=== PATIENT | male | born 1945 | race Caucasian/White ===

== ENCOUNTER 2017-05-26 11:25 | Inpatient (IN) | payer OTHER ==
[2017-04-24 11:25] VITALS: BMI 43.0
--- NOTE | 2017-04-24 11:57 | PAT Medication Instructions ---
Service Date Apr 24, 2017. Current Home Medication List Ascorbic Acid (Vitamin C), 1,000 MG PO QAM Biotin (Biotin), 1 TAB PO QAM Celecoxib (Celebrex), 1 CAP PO QAM Cholecalciferol (Vitamin D3), 1 TAB PO QAM Cod Liver Oil (Cod Liver Oil 1000 mg), 1 CAP PO QAM Coenzyme Q10 (Ubidecarenone) (Coq10), 200 MG PO QAM Fish Oil ([place]-3), 1 CAP PO QAM Fluticasone Propionate (Nasal) (Flonase Allergy Relief), 1 SPRAY PHILOMENA QAM Hydrochlorothiazide (Hctz), 25 MG PO QAM Levothyroxine Sodium (Synthroid), 125 MCG PO QAM Multivitamin (Multivitamin), 1 TAB PO QAM Ranitidine (Zantac), 150 MG PO BID Sennosides-Docusate Sodium (Stool Softener), 1 TAB PO BID Medication Instructions For Your Scheduled Surgery - Hold the following medications 2 weeks prior to surgery: Biotin (Biotin), 1 TAB PO QAM Cod Liver Oil (Cod Liver Oil 1000 mg), 1 CAP PO QAM Coenzyme Q10 (Ubidecarenone) (Coq10), 200 MG PO QAM Fish Oil ([place]-3), 1 CAP PO QAM - Hold the following medications the morning of surgery: Sennosides-Docusate Sodium (Stool Softener), 1 TAB PO BID Cholecalciferol (Vitamin D3), 1 TAB PO QAM Hydrochlorothiazide (Hctz), 25 MG PO QAM Multivitamin (Multivitamin), 1 TAB PO QAM Ascorbic Acid (Vitamin C), 1,000 MG PO QAM Celecoxib (Celebrex), 1 CAP PO QAM (otherwise okay to continue per surgeon) - Take the following medications the morning of surgery with a sip of water OTHERWISE NOTHING TO EAT OR DRINK AFTER MIDNIGHT: Ranitidine (Zantac), 150 MG PO BID Levothyroxine Sodium (Synthroid), 125 MCG PO QAM Fluticasone Propionate (Nasal) (Flonase Allergy Relief), 1 SPRAY PHILOMENA QAM - Take the following medications as scheduled the night before surgery: Sennosides-Docusate Sodium (Stool Softener), 1 TAB PO BID Ranitidine (Zantac), 150 MG PO BID If you have any questions please call us at [phone] or [phone] or [phone]
[2017-04-24 12:39] LABS: BASO % 1.1 %; BASO ABS # 0.07 K/uL (0-0.2); COMPLETE YES; HEMATOCRIT 43.2 % (42-52); IG% 0.3 %; LYMPH % 24.1 %; LYMPH ABS # 1.47 K/uL (1.2-3.4); MEAN CELL VOLUME 91.9 fL (80-100); MEAN CORPUSCULAR HEMOGLOBIN 33.6 pg (25-34); MEAN CORPUSCULAR HGB CONC 36.6 g/dl (32-36); MEAN PLATELET VOLUME 9.6 fL (7.4-10.4); MONO % 14.3 %; NEUT % 49.2 %; PLATELET COUNT 280 K/uL (130-400)
[2017-04-24 12:47] LABS: URINE APPEARANCE CLEAR (CLEAR); URINE BILIRUBIN NEG (NEG); URINE COLOR YELLOW; URINE EPITHELIAL CELL AUTO 0-5 /lpf (0-5); URINE NITRITE NEG (NEG); URINE SPECIFIC GRAVITY 1.024 (1.000-1.030); UROBILINOGEN NEG (NEG); ZZUR CULT IF INDIC CLEAN CATCH NO
[2017-04-24 12:48] LABS: ESTIMATED AVERAGE GLUCOSE 120 mg/dl; HA1C FLAG Normal (Normal); MANUAL MICROSCOPIC REQUIRED? NO; REVIEW REQ? NO
--- NOTE | 2017-04-24 12:48 | DIAGNOSTIC IMAGING REPORT ---
CHEST PREADMISSION(PA/LAT) CLINICAL HISTORY: Preoperative evaluation. COMPARISON STUDY: Chest radiograph May 21, 2015. FINDINGS: Mild lung hyperexpansion is noted. No pneumothorax or pleural effusion is present. Pulmonary vascularity is normal. Cardiomediastinal silhouette is normal. No consolidation is identified. IMPRESSION: 1. No acute cardiopulmonary findings. 2. Mild lung hyperexpansion. Electronically signed by: Landon Jones M.D. 04/24/2017 12:47 PM Dictated Date/Time: 04/24/2017 12:46 PM
[2017-04-24 12:50] LABS: PROTHROMBIN TIME (PATIENT) 10.7 SECONDS (9.0-12.0)
[2017-04-24 13:40] LABS: BUN/CREATININE RATIO 15.1 (10-20); CALCIUM 9.5 mg/dl (8.5-10.1); CREATININE 1.3 mg/dl (0.60-1.40); POTASSIUM 3.9 mmol/L (3.5-5.1)
--- NOTE | 2017-04-30 13:56 | HISTORY & PHYSICAL EXAMINATION ---
DATE OF ADMISSION: 05/26/2017 PROCEDURE: Left knee revision of patellar component, possible revision of tibial stem, possible stems and wedges and revision total knee replacement. HISTORY OF PRESENT ILLNESS: Naga is a pleasant 72-year-old male who has a history of surgery to his left knee over the past several years. He first underwent a left knee arthroscopy in November 2013. Approximately a year later underwent a left total knee replacement, approximately a month after the surgery, he sustained a twisting injury and tore his medial retinaculum. Therefore, in July 2014, he underwent repair of medial retinaculum. Then in June 2015, he re-tore his medial retinaculum, at that point underwent a repair of medial retinaculum with lateral release and poly exchange. The patient was seen in February for increased pain in his knee, x-rays at that time revealed a lateral subluxation of his patella. At that point, the patient did have a second opinion with Dr. Caldwell as well as per Dr. Blackwell, discussed revision patellar component with revision of tibia. He did have a bone scan performed which did not show any signs of infection or loosening. He underwent some blood work. His CRP was less than 0.29 and his sed rate was 9. Further care discussed including risks and benefits of the procedure, and the patient would like to proceed. PAST MEDICAL HISTORY: History of Lyme disease, sleep apnea, hypothyroidism, COPD, GERD, back pain, hyperlipidemia, and history of atrial flutter. PAST SURGICAL HISTORY: As outlined above. In addition to above, he has also had a tonsillectomy. In November 2015, he underwent lower back surgery with Dr. Murillo. ALLERGIES: TRIPLE ANTIBIOTIC OINTMENT. MEDICATIONS: 1. Hydrochlorothiazide. 2. Meloxicam. 3. Coenzyme Q10. 4. Biotin. 5. Cimetidine. 6. Aspirin. 7. Omeprazole. 8. Simvastatin. 9. Fish oil. 10. Spiriva. FAMILY HISTORY: Noncontributory. SOCIAL HISTORY: The patient is . Rarely consumes any alcohol. Former smoker. He is retired. REVIEW OF SYSTEMS: Otherwise negative. Please see HPI for pertinent positives. PHYSICAL EXAMINATION: GENERAL: Pleasant 72-year-old male in no acute distress, alert and oriented x3. HEENT: Normocephalic, atraumatic. CARDIAC: Regular rate and rhythm. No murmurs or gallops were appreciated. Resting pulse 76 beats per minute. LUNGS: Clear to auscultation without rales or wheeze bilaterally. ABDOMEN: Soft, nontender, obese. Bowel sounds present. EXTREMITIES: Attention to his left lower extremity is neurovascularly intact. Calves are soft and nontender. DP pulse +2. Quad demonstrates straight leg raise without lag. There is no erythema or warmth. Has mild swelling. Range of motion is 0/0/105. His knee is stable with valgus and varus stress. He does have lateral subluxation of the patella through range of motion. Tender to palpation over the anterior knee as well as medial aspect. IMAGING: Review of the left knee show findings consistent with history of total knee replacement, does not appear to be any loosening or poly wear. He does have lateral subluxation of his patella on the sunrise view. IMPRESSION: 1. Painful left total knee. 2. Past medical history as outlined above. PLAN: Further care discussed with the patient. At this point in time, would like to proceed with left knee revision of patellar component with possible revision of tibial component full rotation, possible stems and wedges. After discussing all the risks and benefits of the procedure, he would like to proceed. We will plan on aspirin 81 mg twice a day for a month postop, plan on discharge home with outpatient physical therapy.
[~2017-05-26] VITALS: Ht 180.3 cm; Wt 143.0 kg
[2017-05-26] VITALS (7 sets, daily range): BP systolic 108–147; BP diastolic 69–82; PULSE 67–98; TEMP 36.3–36.6; O2SAT 91–98; Ht 180.3 cm; Wt 143.0 kg
--- NOTE | 2017-05-26 09:53 | History & Physical Bridge Note ---
H&P Re-Evaluation Bridge Note: I have examined the patient, reviewed the History & Physical and in the interval since the performance of the History & Physical I have noted the following changes of clinical significance: No changes noted
[~2017-05-26 11:25] MED LIST: ACETAMINOPHEN 500 MG TAB PO SCH; ASCO10003 PO; BIOT1CAP3 PO; BUPIVACAINE 0.25% 30 ML VIAL ONE; BUPIVACAINE 0.5 % 5 MG/1 ML PF 10ML VIAL ONE; CEFAZOLIN 3000 MG/65 ML D5W 65 ML IV SCH; CHOL1000 PO; CLB100 PO; COD1000C PO; COEN1CAP7 PO; CeleBREX 200 MG CAP PO SCH; DEXAMETHASONE 4 MG TAB PO SCH; FAMOTIDINE 20 MG TAB PO SCH; FLUT0.15 NAE; GABAPENTIN 300 MG CAP PO SCH; HYDR25TA4 PO; LACTATED RINGER'S 1000ML 1,000 ML IV SCH; LACTATED RINGER'S 1000ML 500 ML IV ONE; LACTATED RINGER'S 1000ML IV SCH; MULT-506 PO; OMEG10007 PO; ROPIVACAINE 5MG/ML 30 ML 150 MG, BUPIVACAINE/EPINEPHR 0.5% MPF 30 ML, KETOROLAC TROMETH... INFIL SCH; SENNTAB23 PO; SYN125 PO; ZNTT/150 PO
[2017-05-26] MEDS ORDERED: MEPERIDINE HCL 25 MG/ML CARP IV PRN (11:45)
[2017-05-26] MEDS ORDERED: LABETALOL HCL IV 5 MG/ML 20ML IV PRN (11:45)
[2017-05-26] MEDS ORDERED: ONDANSETRON INJ 2 MG/ML 2 ML VIAL IV PRN ×3 (11:45→17:45)
[2017-05-26] MEDS ORDERED: EpHEDrine SULFATE INJ 50 MG/ML AMP IV PRN (11:45)
[2017-05-26] MEDS ORDERED: FENTANYL CITRATE INJ 50 MCG/1 ML 2 ML VIAL IV PRN (11:45)
[2017-05-26] MEDS ORDERED: ATROPINE SULFATE 0.1 MG/ML 5ML SYR IV PRN (11:45)
[2017-05-26] MEDS ORDERED: HYDROmorphone INJ 1 MG/ML SYR IV PRN (11:45)
[2017-05-26] MEDS ORDERED: FENTANYL CITRATE INJ 50 MCG/1 ML 2 ML VIAL ONE (12:39)
[2017-05-26] MEDS ORDERED: MIDAZOLAM HCL 1 MG/ML 2ML VIAL ONE ×2 (12:39)
[2017-05-26] MEDS ORDERED: LIDOCAINE HCL 2% 2 ML VIAL (20MG/ML) ONE (12:40)
[2017-05-26] MEDS ORDERED: PHENYLEPHRINE 100MCG/ML 5ML SYR ONE (12:40)
[2017-05-26] MEDS ORDERED: PROPOFOL IV EMULSION 10 MG/ML 20 ML VIAL IV ONE ×3 (12:40→16:47)
[2017-05-26] MEDS ORDERED: EpHEDrine SULFATE 50MG/5ML SYR ONE (12:40)
[2017-05-26] MEDS ORDERED: ASPI81TA28 PO (12:43)
[2017-05-26] MEDS ORDERED: POVIDONE-IODINE OP SOLN 30 ML BTL ONE (14:16)
[2017-05-26] MEDS ORDERED: BACITRACIN 50000 UNIT VIAL ONE (14:16)
[2017-05-26] MEDS ORDERED: ORTHO JOINT ANESTHETIC ONE (14:16)
[2017-05-26] MEDS: TRANEXAMIC ACID INJ 1,000 MG in SODIUM CHLORIDE 0.9% 100ML 100 ML IV SCH ×2 (14:51→19:20)
[2017-05-26] MEDS ORDERED: ZOLPIDEM TARTRATE 5 MG TAB PO PRN ×2 (16:15→17:45)
[2017-05-26] MEDS ORDERED: MoRPHine SULFATE 2 MG/ML CARP IV PRN (16:15)
[2017-05-26] MEDS ORDERED: DiphenhydrAMINE HCL 50 MG/ML VIAL IV PRN ×2 (16:15→17:45)
[2017-05-26] MEDS ORDERED: SOD PHOSPHATE/SOD BIPHOSPHATE ENEMA 132 ML BTL PR PRN ×2 (16:15→17:45)
[2017-05-26] MEDS ORDERED: OXYCODONE HCL IR 5 MG TAB (IMMEDIATE RELEASE) PO PRN ×2 (16:15→17:45)
[2017-05-26] MEDS ORDERED: MAGNESIUM HYDROXIDE SUSP 30 ML UDC PO PRN ×2 (16:15→17:45)
[2017-05-26] MEDS ORDERED: BISACODYL 10 MG SUPP PR PRN ×2 (16:15→17:45)
--- NOTE | 2017-05-26 17:38 | [facility] Operative Report ---
Operative Report Operative Date May 26, 2017. Pre-Operative Diagnosis Painful left knee Post-Operative Diagnosis Same Procedure(s) Performed Open Lateral Vastus Medialis Oblique repair and poly exchange Left knee with lateral retinacular release Surgeon DR Blackwell Tobacco Sampler Surgeon(s) Deepti Syed PA-C Estimated Blood Loss 10ml Findings Patient presents after having a fall after having had a previous total knee arthroplasty [place]'s medial retinaculum times to conservative having another fall times surgery component orientation version and rotation was all checked and was noted to be excellent tibial rotation was noted to be anatomically on the femoral rotation was noted to be excellent other was noted be soft tissue imbalance with stretching of medial retinaculum and lateral subluxation of the patella was also [place] laxity medial laterally from the poly- subsequently the poly-was changed upsized was size 15 x 7 a lateral release was performed as well as a VMO plication and VMO repair with #2 FiberWire Specimens Culture :Anaerobic and routine C&S Left knee joint fluid Gram Stain = Left Knee joint fluid sent to lab at 1554 Complication(s) None Disposition Recovery Room / PACU Indications Patient presents after having had continued subluxation of the patella after having a fall status post total knee arthroplasty patient was scheduled for potential for revision of implants. Knowns loosening of implants interoperative cultures were taken of there is no centimeters infection noted diversion of the and rotation of the tibia was noted to be excellent the rotation and position of the femoral component was noted be excellent the patella was subluxing with lateral tightness and stretched out medial retinaculum was also laxity medial lateral collateral ligaments due to poly- laxity subsequently this was irrigated and changed as well as a lateral retinacular release is performed Description of Procedure After proper prepping draping the left lower stem incision made in revision the extensor mechanism dissection carried down through the subcutaneous tissue to the extensor mechanism the medial parapatellar incision which was noted to be stretched out was opened sutures from previous repair were removed the version and rotation of the tibia and femur were both evaluated of any loosening was noted management of infection was noted subsequently the patellar tracking was noted to track lateral stretched out medial retinacular repair this was repaired prior to socially poly-was upsized to a size 15 x 7 gave excellent stability in full extension mid flexion and flexion a lateral retinacular release was performed subsequent no further subluxation of the patella lateralward was noted the synovectomy having been performed with removal scar and hypertrophic synovium was performed the medial retinacular repair performed utilizing #2 FiberWire patella was noted track in excellent fashion due to the fact presented multiple previous falls decision-making patient in knee immobilizer socially that after performing a repair of the medial retinaculum subcutaneous closed with #2-0 [place] skin was closed with a 6 skin clips sterile compressive dressing was placed as well as a double drain was placed in the joint as well as in subcutaneous tissue patient was socially taken to recovery in stable condition operative report dictated by Rishi HENDRICKS was necessary consistent for retraction wound closure defect subcutaneous and skin was necessary for the case I attest to the content of the Intraoperative Record and any orders documented therein. Any exceptions are noted below.
[2017-05-26] MEDS ORDERED: HYDROCODONE/ACETAMOPHEN 5/325MG TAB PO PRN (17:45)
[2017-05-26] MEDS ORDERED: METOCLOPRAMIDE HCL INJ 5 MG/ML 2 ML VIAL IV PRN (17:45)
[2017-05-26] MEDS ORDERED: ALUMINUM/MAGNESIUM/SIMETH (MAALOX MAX) 30 ML UDC PO PRN (17:45)
[2017-05-26] MEDS ORDERED: CEFAZOLIN IV 2,000 MG in DEXTROSE 5% 50ML 50 ML IV SCH (17:45)
[2017-05-26] MEDS ORDERED: TRAMADOL HCL 50 MG TAB PO PRN (17:45)
--- NOTE | 2017-05-26 17:47 | DIAGNOSTIC IMAGING REPORT ---
LEFT KNEE 2 VIEWS History: Left total knee arthroplasty. Degenerative arthritis. Postop. FINDINGS: The patient is status post a left total knee arthroplasty. The hardware is intact. No fracture or dislocation. Skin maxwell and surgical drains are in place. IMPRESSION: Left total knee arthroplasty. No evidence for hardware complication. Electronically signed by: Leno Camarena M.D. 05/26/2017 5:45 PM Dictated Date/Time: 05/26/2017 5:45 PM
--- NOTE | 2017-05-26 18:12 | Anesthesiology Progress Note ---
Anesthesia Post Op Note Date & Time May 26, 2017 at 18:12 Vital Signs Pain Intensity: 0 Vital Signs Past 12 Hours Date Time Temp Pulse Resp B/P (MAP) Pulse Ox O2 Delivery O2 Flow Rate FiO2 05/26/17 18:01 67 17 97 05/26/17 18:01 68 17 05/26/17 18:00 128/76 05/26/17 17:57 36.4 66 16 128/76 (86) 97 Nasal Cannula 2 05/26/17 17:56 66 15 95 05/26/17 17:56 67 15 05/26/17 17:55 109/64 05/26/17 17:51 68 15 95 05/26/17 17:51 68 15 05/26/17 17:50 112/61 05/26/17 17:46 69 19 05/26/17 17:46 69 19 95 05/26/17 17:45 112/61 05/26/17 17:41 70 21 96 05/26/17 17:41 70 21 05/26/17 17:40 103/65 05/26/17 17:39 72 19 05/26/17 17:39 71 19 97 05/26/17 17:35 104/65 05/26/17 17:34 77 12 05/26/17 17:34 76 12 97 05/26/17 17:30 97/62 05/26/17 17:29 79 15 05/26/17 17:29 80 15 97 05/26/17 17:25 109/64 05/26/17 17:24 86 18 97 05/26/17 17:24 84 18 05/26/17 17:20 113/60 05/26/17 17:19 81 16 113/66 94 05/26/17 17:19 36.0 81 16 113/66 (81) 94 Oxymask 10 05/26/17 17:19 81 16 05/26/17 12:26 36.5 81 20 147/82 95 Room Air Notes Mental Status: alert / awake / arousable, participated in evaluation Pt Amnestic to Procedure: Yes Nausea / Vomiting: adequately controlled Pain: adequately controlled Airway Patency, RR, SpO2: stable & adequate BP & HR: stable & adequate Hydration State: stable & adequate Neuraxial Anesthesia: was administered, sensory block is resolving Anesthetic Complications: no major complications apparent
[2017-05-26] MEDS ORDERED: SODIUM CHLORIDE 0.9% 1000ML 1,000 ML IV SCH (19:00)
[2017-05-26] MEDS: FERROUS GLUCONATE 324 MG TAB PO SCH (19:50)
[2017-05-26] MEDS: KETOROLAC TROMETHAMINE 15 MG/ML VIAL IV. SCH ×2 (19:50→21:30)
[2017-05-26] MEDS: D5W AND 1/2NSS + 20MEQ KCL 1,000 ML IV SCH (19:50)
[2017-05-26] MEDS ORDERED: SENNA 8.6 MG TAB PO SCH ×2 (21:00)
[2017-05-26] MEDS ORDERED: ASPIRIN 81 MG ECTAB PO SCH (21:00)
[2017-05-26] MEDS: DOCUSATE SODIUM 100 MG CAP PO SCH (21:30)
[2017-05-26] MEDS: ASPIRIN 325 MG ECTAB PO SCH (21:30)
[2017-05-26] MEDS: ACETAMINOPHEN 500 MG TAB PO SCH (21:31)
[2017-05-27] MEDS: CEFAZOLIN IV 3,000 MG in SYRINGE 0 ML IV SCH ×2 (00:40→07:53)
[2017-05-27] MEDS: KETOROLAC TROMETHAMINE 15 MG/ML VIAL IV. SCH ×3 (02:14→13:49)
[2017-05-27 03:15] VITALS: BP 108/68; PULSE 66; TEMP 36.4; O2SAT 94
[2017-05-27] MEDS: D5W AND 1/2NSS + 20MEQ KCL 1,000 ML IV SCH (05:34)
[2017-05-27] MEDS: ACETAMINOPHEN 500 MG TAB PO SCH ×2 (05:35→13:44)
[2017-05-27] MEDS ORDERED: LEVOTHYROXINE 125 MCG TAB PO SCH (06:00)
[2017-05-27 07:22] VITALS: BP 111/70; PULSE 66; TEMP 36.5; O2SAT 96
[2017-05-27 07:25] LABS: HEMATOCRIT 37.6 % (42-52); MEAN CELL VOLUME 92.2 fL (80-100); MEAN CORPUSCULAR HEMOGLOBIN 31.9 pg (25-34); MEAN CORPUSCULAR HGB CONC 34.6 g/dl (32-36); MEAN PLATELET VOLUME 9.7 fL (7.4-10.4); PLATELET COUNT 246 K/uL (130-400); RED BLOOD COUNT 4.08 M/uL (4.7-6.1); WHITE BLOOD COUNT 14.96 K/uL (4.8-10.8)
[2017-05-27] MEDS ORDERED: DEXAMETHASONE 4 MG TAB PO ONE (07:30)
--- NOTE | 2017-05-27 07:55 | Orthopedic Progress Note ---
Orthopedic Progress Note Date of Service May 27, 2017. Subjective Post OP Day: 1 Reports: feeling well, Denies: chest pain, SOB, nausea / vomiting, light headedness, calf pain Objective calves soft nontender, N/V intact, capillary refill less than 2 sec., dressing C /D/I, A&O x3, toes mobile, hemovac drainage (25/150cc per shift) Date Time Temp Pulse Resp B/P (MAP) Pulse Ox O2 Delivery O2 Flow Rate FiO2 05/27/17 07:22 36.5 66 18 111/70 (84) 96 Room Air 05/27/17 03:15 36.4 66 16 108/68 (81) 94 Room Air 05/27/17 00:40 CPAP 05/26/17 22:50 36.6 75 16 117/73 (88) 91 BiPAP 05/26/17 21:25 36.3 78 16 110/72 (85) 93 Room Air CPAP 05/26/17 20:40 Room Air 05/26/17 20:17 36.3 98 18 118/72 (87) 95 Room Air 05/26/17 19:29 77 18 133/79 (97) 94 Nasal Cannula 2.0 05/26/17 19:09 67 18 111/69 (83) 98 Room Air 05/26/17 18:37 Nasal Cannula 2.0 05/26/17 18:25 36.4 67 18 108/70 (83) 95 Nasal Cannula 2.0 05/26/17 18:01 67 17 97 05/26/17 18:01 68 17 05/26/17 18:00 128/76 05/26/17 17:57 36.4 66 16 128/76 (86) 97 Nasal Cannula 2 05/26/17 17:56 66 15 95 05/26/17 17:56 67 15 05/26/17 17:55 109/64 05/26/17 17:51 68 15 95 05/26/17 17:51 68 15 05/26/17 17:50 112/61 05/26/17 17:46 69 19 05/26/17 17:46 69 19 95 05/26/17 17:45 112/61 05/26/17 17:41 70 21 96 05/26/17 17:41 70 21 05/26/17 17:40 103/65 05/26/17 17:39 72 19 05/26/17 17:39 71 19 97 05/26/17 17:35 104/65 05/26/17 17:34 77 12 05/26/17 17:34 76 12 97 05/26/17 17:30 97/62 05/26/17 17:29 79 15 05/26/17 17:29 80 15 97 05/26/17 17:25 109/64 05/26/17 17:24 86 18 97 05/26/17 17:24 84 18 05/26/17 17:20 113/60 05/26/17 17:19 81 16 113/66 94 05/26/17 17:19 36.0 81 16 113/66 (81) 94 Oxymask 10 05/26/17 17:19 81 16 05/26/17 12:26 36.5 81 20 147/82 95 Room Air Laboratory Results 24 Hours: Test 05/27/17 07:06 Hematocrit 37.6 % Hemoglobin 13.0 g/dL Assessment & Plan Assessment: POD#1 sp poly exchange and patella release left TKA Plan: PT/OT DVT proph- ASA 81mg bid Pain management- Codie, Tylenol, Celebrex DC planning- home today with [facility] home nursing. OK to dc dressing/drain before DC.
[2017-05-27] MEDS ORDERED: ASPI81TA28 PO (07:59)
[2017-05-27] MEDS ORDERED: RXC5 PO (07:59)
[2017-05-27] MEDS ORDERED: ACET-24 PO (07:59)
[2017-05-27] MEDS ORDERED: CLB100 PO (07:59)
[2017-05-27] MEDS ORDERED: SNK PO (07:59)
[2017-05-27] MEDS ORDERED: ONDA8TAB6 PO (07:59)
--- NOTE | 2017-05-27 08:00 | Discharge Instructions ---
Discharge Instructions Date of Service May 27, 2017. Admission Reason for Admission: Left Knee Osteoarthritis Discharge Discharge Diagnosis / Problem: sp left TKA Discharge Goals Goal(s): Decrease discomfort, Improve function, Increase independence Activity Recommendations Activity Limitations: per Instructions/Follow-up section . Instructions / Follow-Up Instructions / Follow-Up ACTIVITY RECOMMENDATIONS: SELF CARE INSTRUCTIONS AFTER TOTAL KNEE REPLACEMENT A. You may need to continue a physical therapy program after discharge from the hospital. There are several options available to you. Your doctor will assist you in selecting the best one for you. 1. An out-patient facility 2 to 3 times a week for therapy or home therapy. 2. Continue working on all exercises taught to you in the hospital. Your goals should be to increase bending of your knee to 90 degrees and beyond and to fully straighten your knee. B. You may progress at your own pace from walking with a walker or crutches to a cane; then to no assistive devices. C. Make walking a part of your daily routine. Be up as much as comfortable with rest periods throughout the day. Rest with leg elevation is very important. Use the ice wrap frequently for the first 3-4 weeks. D. There are no restrictions on activities. You may ride in a car, shop, participate in economic development coordinator and all social activities. E. Wear the long elastic stockings (MATT hose) 20 hours a day for 2 weeks after surgery. They can be removed several times a day for laundering and for a bath. F. You may shower, no tub baths until cleared by your doctor. SPECIAL CARE INSTRUCTIONS: VERY IMPORTANT TO READ AND REVIEW A. There are a few signs you need to watch for after you are home. Call [facility] if you notice any of the followin. Increased severe knee pain. Some pain is expected especially when you exercise. 2. Increased swelling in your leg or knee; pain or swelling of the calf muscle in either lower leg. 3. Any fluid drainage from the incision. 4. Shortness of breath or chest pain. B. Please call [facility] at if you have any concerns or questions about your operation or recovery. The doctor or his nurse will return your call promptly. C. You must take antibiotics before dental work, bladder, bowel or other surgery. Your doctor will provide you with a permanent care to carry describing this precaution. IMPORTANT: * REMEMBER TO TAKE ASPIRIN, 81 MG, TWICE DAILY FOR 4 WEEKS UNLESS OTHERWISE DIRECTED. THIS IS YOUR BLOOD THINNER. * HIGH RISK PATIENTS MAY BE PRESCRIBED A STRONGER BLOOD THINNER. THIS WILL BE PROVIDED AT DISCHARGE. * CALL IF INCREASED PAIN, REDNESS, DRAINAGE OR FEVER GREATER THAT 101. * WEAR MATT HOSE 20 HOURS PER DAY FOR 2 WEEKS. Prevena- This is a large suction dressing covering your incision. This will help pull any excess drainage from the wound and allow your incision to heal properly. You may shower with this if you can keep the unit outside of the shower. If any bleeding or leakage is noted please call your doctor's office. This will remain on your incision for 7 days and then should be removed. This can be done yourself or by the home nursing staff if applicable. The entire unit is disposable once removed. Once removed, keep incision clean and dry. If redness or drainage is noted, please call your surgeon. FOLLOW UP VISIT: If appointment is not already scheduled: Please call [facility] to make a follow-up appointment for 2 weeks after your surgery at . Current Hospital Diet Patient's current hospital diet: Regular Diet Discharge Diet Recommended Diet: Regular Diet Procedures Procedures Performed: Open Lateral Vastus Medialis Oblique repair and poly exchange Left knee with lateral retinacular release Pending Studies Studies pending at discharge: no Laboratory Results Hemoglobin A1c Test 04/24/17 12:05 Range/Units Estimated Average Glucose 120 mg/dl Hemoglobin A1c 5.8 H 4.5-5.6 % Medical Emergencies . Who to Call and When: Medical Emergencies: If at any time you feel your situation is an emergency, please call 911 immediately. . Non-Emergent Contact Non-Emergency issues call your: Surgeon . "Provider Documentation" section prepared by Marlen Cohen. . VTE Core Measure Inpt VTE Proph given/why not?: Other Anticoagulation, [facility], [facility] [place] Drug Monitoring Program Search Results: patient reviewed within database, no issues identified
[2017-05-27 08:07] LABS: BLOOD UREA NITROGEN 24 mg/dl (7-18); CALCIUM 8.2 mg/dl (8.5-10.1); CARBON DIOXIDE 23 mmol/L (21-32); CHLORIDE 104 mmol/L (98-107); CREATININE 1.49 mg/dl (0.60-1.40); GLUCOSE 138 mg/dl (70-99); SODIUM 136 mmol/L (136-145)
[2017-05-27] MEDS: ASPIRIN 325 MG ECTAB PO SCH (08:56)
[2017-05-27] MEDS: FERROUS GLUCONATE 324 MG TAB PO SCH ×2 (08:56→12:46)
[2017-05-27] MEDS: HYDROCHLOROTHIAZIDE 25 MG TAB PO SCH ×2 (08:56→08:57)
[2017-05-27] MEDS: DOCUSATE SODIUM 100 MG CAP PO SCH (08:56)
[2017-05-27] MEDS ORDERED: PANTOprazole SOD 40 MG TAB PO SCH ×2 (09:00)
[2017-05-27] MEDS ORDERED: FLUTICASONE PROPIONATE NA SPR 16 GM BTL NAE SCH (09:00)
[2017-05-27] MEDS ORDERED: MULTIVITAMIN TAB PO SCH ×2 (09:00)
[2017-05-27 09:42] VITALS: BP 111/70; PULSE 66; TEMP 36.5; O2SAT 96
[2017-05-27 10:57] VITALS: BP 114/67; PULSE 70; TEMP 36.4; O2SAT 97
--- NOTE | 2017-05-27 12:16 | Clinical Documentation Query ---
BUSTER Rehman : CLINICAL DOCUMENTATION QUERY BUN, creatinine, and estimated GFR this a.m. (05/27) were 24 mg/dl, 1.49 mg/dl, and 46 ml/min. Estimated GFR range from 05/24 to present of 42-54 ml/min. Please clarify as clinically appropriate. He is being treated with IVF and monitored with serial chemistries. In your clinical opinion is this patient being managed for: ( ) Chronic kidney disease, stage 3 ( ) Not Agree ( ) Other explanation of clinical findings (Please Explain) ( x ) Unable to determine (Please Define) ( ) Need to Discuss The medical record reflects the following clinical findings, treatment, and risk factors. Clinical Indicators: As above Treatment: He is being treated with IVF and monitored with serial chemistries. Risk Factors: Age, medications, atrial flutter Please clarify and document your clinical opinion in the progress notes and discharge summary. Terms such as "probable", "suspected", "likely", "questionable", "possible", or "still to be ruled out" are acceptable. IF IN AGREEMENT, YOU MUST DOCUMENT ABOVE DIAGNOSTIC STATEMENT IN DAILY PROGRESS NOTES AND DISCHARGE SUMMARY. This document is not part of the patient's record. Thank You, Heber Christianson, RN [phone]
[2017-05-27] MEDS ORDERED: ULT50X PO (12:34)
[2017-05-27] MEDS ORDERED: CeleBREX 200 MG CAP PO SCH (21:00)
--- NOTE | 2017-05-28 08:13 | EDITING REQUIRED CODING QUERY ---
CODING QUERY To promote full compliance with coding requirements relating to patient care, provider participation is requested in all cases of vp research uncertainty. Please assist us with the question(s) below: Coding Question(s): 1. Please clarify below, in your clinical opinion, regarding documentation on the Operative Report of "Knows loosening of implants". ( ) This means Known loosening of implants - this is a complication of the TKA ( x ) This means No loosening of implants and is not a complication of the TKA ( ) Other: Please specify and clarify if there is any complication of the TKA 2. Please clarify below, in your clinical opinion, regarding "Painful left knee". ( ) This is a complication of the TKA (x ) This is not a complication of the TKA - it is from trauma from the fall and subluxation of the patella ( ) Other: Please specify and clarify if there is any complication of the TKA Physician's Response(s): Thank you Hiral Glynn Principal Diagnosis: "_that condition established after study, to be chiefly responsible for occasioning the admission of the patient to the hospital for care." Co-Existing Principal Diagnosis: "_when two or more diagnoses equally meet the criteria for principal diagnosis as determined by the circumstances of admission, diagnostic work up, and/or therapy provided, and the Alphabetic Index, Tabular List, or another coding guideline does not provide sequencing direction, any one of the diagnoses may be sequenced first." "When the physician has documented what appears to be a current diagnosis in the body of the record, but has not included the diagnosis in the final diagnostic statement, the physician should be asked whether the diagnosis should be added." (Source Coding [facility] 2 QTR90. p3-4)
--- NOTE | 2017-06-04 16:49 | DISCHARGE SUMMARY ---
DISCHARGE DIAGNOSIS: Painful left knee status post TKA with possible extensor mechanism rupture. SECONDARY DIAGNOSES: History of Lyme disease, sleep apnea, hypothyroidism, chronic obstructive pulmonary disease, gastroesophageal reflux disease, low back pain, hyperlipidemia, and history of atrial flutter. CONSULTS: None. COMPLICATIONS: None. PROCEDURES: Open lateral vastus medialis oblique repair and poly exchange, left knee with lateral retinacular release by Dr. Blackwell on 05/26/2017. BRIEF HISTORY: As dictated in the history and physical. HOSPITAL SUMMARY: The patient was admitted on the above date and had the above-noted surgery performed, which he tolerated well. On the first postoperative day, he was feeling well and had no complaints. Calves were soft and nontender. Neurovascularly intact. Dressings were clean, dry and intact. Toes were mobile. Vital signs were stable. He was afebrile and hemoglobin was 13.0. He was started on physical therapy protocol and continued on DVT prophylaxis and pain management. He was progressing well with his physical therapy and remaining stable and it was felt he could be discharged to home on 05/27/2017. For further review, please see chart. LAB AND X-RAY DATA: As per chart. DISCHARGE INSTRUCTIONS: The patient was discharged to home in satisfactory condition on 05/27/2017. DIET: Regular. ACTIVITY: Follow special care instructions after the knee surgery and also special care instructions as noted. Follow up with Dr. Blackwell in 2 weeks. The patient is to call for an appointment if one has not been made for you. DISCHARGE MEDICATIONS: Acetaminophen 1000 mg p.o. q. 8 hours for 30 days, Zofran 8 mg p.o. q. 8 hours p.r.n. nausea, oxycodone 5-10 mg p.o. q. 4 hours p.r.n., senna 17.2 mg p.o. at bedtime, tramadol 50-100 mg p.o. q. 4 hours p.r.n., aspirin 81 mg p.o. b.i.d. for 30 days and after 30 days resume once daily dosing, and Celebrex 100 mg p.o. b.i.d. for 30 days and after 30 days, resume once daily dosing. Resume home meds as listed and discharge instruction and stop taking a stool softener.
== END 2017-05-27 14:35 | disposition home or self-care (01) | DRG 488 ==
LOC: C.ACU 11:25 → C.3E 12:26 → ENRESERV 17:58
PROVIDERS: ADMIT Orthopaedic Surgery; ATTEND Orthopaedic Surgery
PROC: 0KQR0ZZ Repair Left Upper Leg Muscle, Open Approach (ICD-10-PCS; principal; 2017-05-26 14:15)
PROC: 0SUW09Z Supplement Left Knee Joint, Tibial Surface with Liner, Open Approach (ICD-10-PCS; principal; 2017-05-26 14:15)
PROC: 0SPD09Z Removal of Liner from Left Knee Joint, Open Approach (ICD-10-PCS; principal; 2017-05-26 14:15)
DX: S83.002A Unspecified subluxation of left patella, initial encounter (principal); Z68.41 Body mass index [BMI] 40.0-44.9, adult; I48.92 Unspecified atrial flutter; J44.9 Chronic obstructive pulmonary disease, unspecified; K21.9 Gastro-esophageal reflux disease without esophagitis; E78.5 Hyperlipidemia, unspecified; N18.2 Chronic kidney disease, stage 2 (mild); G47.33 Obstructive sleep apnea (adult) (pediatric); E66.01 Morbid (severe) obesity due to excess calories; Z96.652 Presence of left artificial knee joint; Z79.899 Other long term (current) drug therapy; Z79.82 Long term (current) use of aspirin; Z87.891 Personal history of nicotine dependence; W19.XXXA Unspecified fall, initial encounter; Y99.8 Other external cause status